=== PATIENT | female | born 1985 | race Caucasian/White ===

== ENCOUNTER 2018-03-23 21:30 | Inpatient (IN) ==
[2018-03-23] MEDS ORDERED: Morphine Inj 4 MG/ML Vial IV.PUSH PRN (22:40)
[2018-03-23] MEDS ORDERED: Citric Acid/Sodium Citrate Liq 30 ML UDC PO SCH (22:45)
[2018-03-23 23:19] LABS: Baso % (Auto) 0.4 % (0.0-2.0); Eos # (Auto) 0.2 th/mm3 (0.0-0.4); Eos % (Auto) 2.3 % (0.0-4.0); Hematocrit 37.9 % (35.0-46.0); Lymph # (Auto) 2.7 th/mm3 (1.0-4.8); Lymph % (Auto) 26.9 % (9.0-44.0); Mean Corpuscular HGB Conc 34.3 % (32.0-36.0); Mean Corpuscular Hemoglobin 32.9 pg (27.0-34.0); Mean Corpuscular Volume 95.9 fL (80.0-100.0); Mean Platelet Volume 9.1 fL (7.0-11.0); Mono # (Auto) 0.7 th/mm3 (0.0-0.9); Mono % (Auto) 7.3 % (0.0-8.0); Neut # (Auto) 6.3 th/mm3 (1.8-7.7); Neut % (Auto) 63.1 % (16.0-70.0); Platelet Count 246 th/mm3 (150-450); Red Blood Count 3.95 mil/mm3 (4.00-5.30); Red Cell Distribution Width 13.5 % (11.6-17.2); White Blood Count 9.9 th/mm3 (4.0-11.0)
[2018-03-23 23:28] LABS: Amphetamine Screen,Urine Neg (Neg); Barbiturate Screen,Urine Neg (Neg); Cannabinoid Screen,Urine Neg (Neg); Cocaine Screen,Urine Neg (Neg)
[2018-03-23 23:32] LABS: Opiate Screen,Urine Neg (Neg)
[2018-03-23] MEDS: LORazepam 1 MG Tablet PO PRN (23:54)
--- NOTE | 2018-03-24 02:43 | P.HPOB ---
History of Present Illness Service: labor Primary Care Physician: No Primary Care Physician Chief Complaint: 23 + week IUP with lethal anomolies History of Present Illness: 23 week IUP wtih lethal anomolies 33 yo mwf with EDC 07/17/18 at 23+ weeks. At 20 weeks routine anatomy scan revealed severe ascites and subsequent imaging with [facility]RI[facility]IAN[facility] has revealed a VDS , clubbed feet, cystic kidneys and hydronephrosis. Ascites has compressed chest cavity and perinatology has determined there is inadequate space for pulmonary development. Karyotype 46XY TORCH negative Coxsackie positive IgG. She is a school nurse. No viral syndrome or other illness remembered. Rh negative but titer also negative. Prior 2 pregnancies were term SVDs. She did have mild PPH after second child. Her baseline history is significant for anxiety, increased BMI. No HTN, GDM or PTL. PNC began in first trimester and has been consistent. Full H & P also dictated and pending. Weeks Gestation:: 23 Para: 2 : 3 - Inpatient Certification I certify that the inpatient services were ordered in accordance with Medicare regulations governing the order. This includes certification that hospital inpatient services are reasonable and necessary and in the case of services not specified as inpatient-only under 42 CFR 419.22(n), that they are appropriately provided as inpatient services in accordance to with the 2-midnight benchmark under 43 CFR 412.3(e) Estimated Total Length of Stay (Days): 2 Plans for Post Hospital Care: Home Review of Systems All other systems reviewed negative except as stated in HPI Psychiatric: Reports anxiety PMFSH - Social History I have reviewed the patient's Social History: Yes - Tobacco History Second Hand Smoke Exposure: No Tobacco Use In Past 30 Days: No - Travel History Recent Travel in the [place] Within the Last 8 Weeks: No Recent Travel Out of the Country Within the Last 8 Weeks: No - Immunization History Tetanus Immunization: Unsure Hx Influenza Vaccine This Season: No Medications and Allergies Active Medications: Active Medications Citric Acid/Sodium Citrate (Sodium Citrate/Citric Acid Liq) 30 ml PO PUNCH MOLDER ANNA Stop: 03/27/18 22:44 Diphenoxylate HCl/Atropine (Lomotil) 1 tab PO Q4H PRN PRN Reason: DIARRHEA Lactated Ringer's (Lr 1000 Ml Inj) 1,000 mls @ 125 mls/hr IV.CONT .Q8H ANNA Stop: 03/24/18 06:44 Last Admin: 03/23/18 22:15 Dose: 125 mls/hr Lorazepam (Ativan) 1 mg PO TID PRN PRN Reason: ANXIETY Last Admin: 03/23/18 23:54 Dose: 1 mg Lorazepam (Ativan Inj) 1 mg IV.PUSH Q8H PRN PRN Reason: ANXIETY Misoprostol (Cytotec) 50 mcg PO Q4HR [facility] Last Admin: 03/24/18 01:46 Dose: 50 mcg Morphine Sulfate (Morphine Inj) 5 mg IV.PUSH Q2H PRN PRN Reason: Pain Scale 5 - 10 Morphine Sulfate (Morphine Inj) 2 mg IV.PUSH Q2H PRN PRN Reason: Pain Scale 1 - 4 Ondansetron HCl (Zofran Inj) 4 mg IV.PUSH Q6H PRN PRN Reason: NAUSEA OR VOMITING Sodium Chloride (Ns Flush) 2 ml IV.FLUSH BID ANNA Sodium Chloride (Ns Flush) 2 ml IV.FLUSH UNSCH PRN PRN Reason: FLUSH AFTER USING IV ACCESS Allergies Allergy/AdvReac Type Severity Reaction Status Date / Time amoxicillin AdvReac Intermediate not Verified 03/24/18 00:49 working for pt. Home Medications Medication Instructions Recorded Confirmed Type Claritin 10 mg PO DAILY 03/24/18 03/24/18 History Colace 1 tab PO BID 03/24/18 03/24/18 History Vitamin 1 tab PO DAILY 03/24/18 03/24/18 History Wellbutrin SR 150 mg PO BID 03/24/18 03/24/18 History aspirin 81 mg PO DAILY 03/24/18 03/24/18 History metoprolol tartrate 50 mg PO BID 03/24/18 03/24/18 History Exam Vital signs: Vital Signs 03/23/18 21:56 03/24/18 00:00 03/24/18 00:01 Temperature 99.1 F Pulse Rate 85 70 Respiratory Rate 18 18 Blood Pressure 125/70 110/61 03/24/18 01:48 03/24/18 01:50 Temperature 98.2 F Pulse Rate 80 Respiratory Rate 16 Blood Pressure 103/42 L Intake & Output 03/23/18 03/23/18 03/24/18 06:59 18:59 06:59 Weight 138.799 kg Other: Weight On Admission 138.799 kg - Constitutional moderate distress, obese - Routine HEENT Exam Head: Present: normocephalic Eye: Present: PERRL ENT: Present: mucous membranes moist - Routine Respiratory Exam Present: CTA bilaterally - Routine Cardiovascular Exam Present: RRR - Routine Abdominal Exam Present: soft, normoactive bowel sounds - Routine Neurological Exam Present: alert, oriented X3 (cervix soft/long/finger tip) Results - Labs CBC & Chem 7: 03/23/18 22:15 Labs: Laboratory Results - last 24 hr 03/23/18 03/23/18 03/23/18 21:43 22:15 22:15 WBC 9.9 RBC 3.95 L Hgb 13.0 Hct 37.9 MCV 95.9 MCH 32.9 MCHC 34.3 RDW 13.5 Plt Count 246 MPV 9.1 Neut % (Auto) 63.1 Lymph % (Auto) 26.9 Major % (Auto) 7.3 Eos % (Auto) 2.3 Baso % (Auto) 0.4 Neut # (Auto) 6.3 Lymph # (Auto) 2.7 Major # (Auto) 0.7 Eos # (Auto) 0.2 Baso # (Auto) 0.0 WBC Differential . Differential Comment Auto diff final Urine Opiates Screen Neg Ur Barbiturates Screen Neg Ur Amphetamines Screen Neg U Benzodiazepines Scrn Neg Urine Cocaine Screen Neg U Cannabinoids Screen Neg Blood Type O Negative Antibody Screen ND Ab Screen Tube Method Negative Caprini VTE Risk Assessment Caprini VTE Risk Assessment: No/Low Risk (score <= 1) Caprini Risk Assessment Model: Point Value = 1 Point Value = 2 Point Value = 3 Point Value = 5 Age 41-60 Minor surgery BMI > 25 kg/m2 Swollen legs Varicose veins or History of unexplained or recurrent spontaneous Oral contraceptives or hormone replacement Sepsis (< 1 month) Serious lung disease, including pneumonia (< 1 month) Abnormal pulmonary function Acute myocardial infarction Congestive heart failure (< 1 month) History of inflammatory bowel disease Medical patient at bed rest Age 61-74 Arthroscopic surgery Major open surgery (> 45 min) Laparoscopic surgery (> 45 min) Malignancy Confined to bed (> 72 hours) Immobilizing plaster cast Central venous access Age >= 75 History of VTE Family history of VTE Factor V Leiden Prothrombin [id number] Lupus anticoagulant Anticardiolipin antibodies Elevated serum homocysteine Heparin-induced thrombocytopenia Other congenital or acquired thrombophilia Stroke (< 1 month) Elective arthroplasty Hip, pelvis, or leg fracture Acute spinal cord injury (< 1 month) Prophylaxis Regimen: Total Risk Factor Score Risk Level Prophylaxis Regimen 0-1 Low Early ambulation 2 Moderate Order ONE of the following: *Sequential Compression Device (SCD) *Heparin 5000 units SQ BID 3-4 Higher Order ONE of the following medications: *Heparin 5000 units SQ TID *Enoxaparin/Lovenox 40 mg SQ daily (WT < 150 kg, CrCl > 30 mL/min) *Enoxaparin/Lovenox 30 mg SQ daily (WT < 150 kg, CrCl > 10-29 mL/min) *Enoxaparin/Lovenox 30 mg SQ BID (WT < 150 kg, CrCl > 30 mL/min) AND/OR *Sequential Compression Device (SCD) 5 or more Highest Order ONE of the following medications: *Heparin 5000 units SQ TID (Preferred with Epidurals) *Enoxaparin/Lovenox 40 mg SQ daily (WT < 150 kg, CrCl > 30 mL/min) *Enoxaparin/Lovenox 30 mg SQ daily (WT < 150 kg, CrCl > 10-29 mL/min) *Enoxaparin/Lovenox 30 mg SQ BID (WT < 150 kg, CrCl > 30 mL/min) AND *Sequential Compression Device (SCD) Assessment and Plan - Diagnosis (1) 23 weeks gestation of Code(s): Z3A.23 - 23 weeks gestation of Status: Acute (2) ascites Code(s): P96.89 - Other specified conditions originating in the period ; R18.8 - Other ascites Status: Acute - Plan cytotec induction
[2018-03-24] MEDS ORDERED: LORazepam 1 MG Tablet PO ONE (02:45)
--- NOTE | 2018-03-24 07:35 | MH ---
cc: Susan Olivarez MD DATE OF ADMISSION: 03/23/2018 REASON FOR ADMISSION: A 23-week intrauterine with a nonviable condition, admission for Cytotec cervical ripening and induction. HISTORY OF PRESENT CONDITION: The patient is a very pleasant 33-year-old, white female, 3, para 2-0-0-2, with LMP 10/02/2017 and EDC 07/17/2017 by 9-week ultrasound, who was having routine surveillance for this when at 20 weeks, it was discovered that the baby had severe ascites, clubbed feet and possible renal cysts. Several evaluations in the interval by OB diagnostics and perinatology through [facility] have resulted in the prognosis of hypoplastic lungs due to the severity of the ascites, failure of nonfunctioning kidneys due to the rapidly progressing polycystic disease and the probability of some type of syndrome despite the normal karyotype to date. Micro analysis is pending at this time. Other than showing IgG antibodies to coxsackievirus, the patient had negative TORCH titers. She is Rh positive and had no suggestion of any type of erythroblastosis. The baby's head has shown no signs of hydrocephalus or scalp edema. PAST MEDICAL HISTORY: The patient herself is significant for an elevated body mass index at 307, a history of hemorrhage with her second child. She has had a tonsillectomy and some sinus irrigation, but no other surgeries. She has had 2 term infants. 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 She does not smoke, drink or use illicit drugs. FAMILY HISTORY: Noncontributory . Her blood type is O negative. She has received RhoGAM appropriately in the past. She is immune to [place] measles. Her Pap smear is normal. Her cultures are negative. PHYSICAL EXAMINATION: GENERAL: She is a well-developed, well-nourished white female who is currently at 306 pounds. Her blood pressure is 150/90. Urine was negative. She has some mild edema. NECK: She has no thyroid enlargement. LUNGS: Clear. HEART: Regular. ABDOMEN: Consistent with ____. PELVIC: Cervix is long, closed, posterior. EXTREMITIES: Show varicosities and some mild edema. IMPRESSION: Nonviable 23-week intrauterine , scheduled for induction of labor and no resuscitative efforts at delivery. Risks, benefits, expectations of this course of action have been discussed in great detail over the course of several weeks and this decision has been made by the patient with her family, the perinatologist and those who advised her ____. MD JUDY Palacio/estrella/sarah , 03:30 PM , 03:42 PM
[2018-03-24] MEDS ORDERED: Acetaminophen 325 MG Tablet PO PRN (08:00)
--- NOTE | 2018-03-24 08:08 | P.OBLABOR ---
Subjective Interval history: quiet night remains very sad but better this am mild cramping only no leaking or bleeding Objective Vital Signs: Vital Signs - 8 hr 03/24/18 01:48 03/24/18 01:50 03/24/18 06:04 Temperature 98.2 F 99.1 F Pulse Rate 80 Respiratory Rate 16 18 Blood Pressure 103/42 L 03/24/18 06:06 03/24/18 07:30 Temperature Pulse Rate 79 78 Respiratory Rate 18 Blood Pressure 81/30 L 123/65 Objective: Pelvic Exam: cervix soft and closed not monitoring Assessment and Plan - Diagnosis (1) 23 weeks gestation of Code(s): Z3A.23 - 23 weeks gestation of Status: Acute (2) ascites Code(s): P96.89 - Other specified conditions originating in the period ; R18.8 - Other ascites Status: Acute - Plan cytotec induction will increase now to 400 mg every four hours epidural as needed desires cremation
[2018-03-24] MEDS: miSOPROStol 200 MCG Tablet PO SCH ×4 (09:15→21:05)
[2018-03-24] MEDS ORDERED: Metoprolol Tartrate 100 MG Tablet PO SCH (09:15)
[2018-03-24] MEDS: buPROPion 150 MG 12 HR Tablet PO SCH ×2 (10:16→21:05)
[2018-03-24] MEDS: Diphenoxylate/Atropine 2.5/0.025 MG Tablet PO PRN ×3 (11:52→20:10)
[2018-03-24] MEDS: Metoprolol Tartrate 50 MG Tablet PO SCH ×2 (13:03→21:06)
[2018-03-24] MEDS: LORazepam 1 MG Tablet PO PRN (14:19)
--- NOTE | 2018-03-24 16:00 | P.OBLABOR ---
Subjective Interval history: having some cramps handling situation well over all some diarrhea Objective Vital Signs: Vital Signs - 8 hr 03/24/18 11:43 03/24/18 11:44 Temperature 98.9 F Pulse Rate 72 Respiratory Rate 20 Blood Pressure 120/67 Objective: Pelvic Exam: 1cm and long but softening rigorous stripping of membranes no part presenting Weeks Gestation: 23 Assessment and Plan - Diagnosis (1) 23 weeks gestation of Code(s): Z3A.23 - 23 weeks gestation of Status: Acute (2) ascites Code(s): P96.89 - Other specified conditions originating in the period ; R18.8 - Other ascites Status: Acute - Plan cytotec induction will increase now to 400 mg every four hours epidural as needed desires cremation
[2018-03-24] MEDS: Morphine Sulfate Inj 8 MG/ML Vial IV.PUSH PRN ×2 (16:16→18:09)
[2018-03-24] MEDS ORDERED: fentaNYL Citrate Inj 100 MCG/2 ML Ampul IV.PUSH PRN ×2 (18:38)
[2018-03-24] MEDS ORDERED: Sod Chloride 0.9% Inj 1,000 ML IV.CONT PRN (18:38)
[2018-03-24] MEDS ORDERED: Sodium Chlor 0.9% Inj 500 ML IV.SIG PRN (18:38)
[2018-03-24] MEDS ORDERED: Citric Acid/Sodium Citrate Liq 30 ML UDC PO SCH (18:45)
[2018-03-24] MEDS ORDERED: Oxytocin 30 Units/500ml Premix 30 UNITS/500 ML BAG IV.SIG ONE (19:00)
[2018-03-25] MEDS: LORazepam 1 MG Tablet PO PRN ×2 (04:50→13:58)
[2018-03-25] MEDS: Morphine Sulfate Inj 8 MG/ML Vial IV.PUSH PRN ×3 (07:47→12:42)
[2018-03-25 07:51] VITALS: RESP 18
[2018-03-25] MEDS: buPROPion 150 MG 12 HR Tablet PO SCH ×2 (09:52→20:59)
--- NOTE | 2018-03-25 09:56 | P.OBLABOR ---
Subjective Interval history: Jaquelin had a rough night. Very tearful. Mild cramping and diarrhea Receiving oral misoprostel -- up to 600 mcg per dose on a 4 hour basis with minimal change. No leaking or bleeding Objective Vital Signs: Vital Signs - 8 hr 03/25/18 02:00 03/25/18 04:55 03/25/18 07:50 Temperature 98.5 F Pulse Rate 59 L 81 Respiratory Rate 20 18 Blood Pressure 124/63 03/25/18 07:52 Temperature Pulse Rate 82 Respiratory Rate Blood Pressure 117/60 Objective: Pelvic Exam: 1-2/long/soft aggressively stripped membranes feet at lower sac Patient Started Active Labor: No Medical Induction of Labor: Yes Artificial Rupture of Membrane: No Assessment and Plan - Diagnosis (1) 23 weeks gestation of Code(s): Z3A.23 - 23 weeks gestation of Status: Acute (2) ascites Code(s): P96.89 - Other specified conditions originating in the period ; R18.8 - Other ascites Status: Acute - Plan cytotec induction will increase now to 400 mg every four hours epidural as needed desires cremation 03/25/18 0930 Long discussion with family: they desire to proceed with induction and delivery of this infant considered to be nonviable per discussions with perinatology (50% of demise and inevitable demise due to pulmonary hypoplasia and polycystic kidneys) Anticipate prolonged prostaglandin induction. Doses not given since 9pm last night due to computer entry issues and busy labor floor. Ready for next dose now. Reviewed up to date and discussed with colleagues regarding pitocin vs cervidil. Will add gaston for manual dilation and continue 600 mcg for a full 24 hours before switching gears. No evidence of infection. Will hep lock IV. detailed discussion with NICU -- will not be present at delivery.
[2018-03-25] MEDS: Metoprolol Tartrate 50 MG Tablet PO SCH ×2 (10:54→23:25)
--- NOTE | 2018-03-25 10:56 | P.OBLABOR ---
Subjective Interval history: discussed and decided to use Cook catheter for cervical dilation. Cervix cleaned and catheter placed with gush of bright red blood and some cramping. Bleeding quickly minimized. Will continue with 600 mcg oral cytotec and minimize cervical checks until balloon falls out. Desire to avoid hysterotomy. appraised of anticipated events. Objective Vital Signs: Vital Signs - 8 hr 03/25/18 04:55 03/25/18 07:50 03/25/18 07:52 Temperature 98.5 F Pulse Rate 81 82 Respiratory Rate 20 18 Blood Pressure 124/63 117/60 Objective: Pelvic Exam: Cervix: [-] Dilatation: [-] Effacement: [-] Station: [-] Presentation: [-] Membranes: [intact or ruptured] Uterine Contractions: [-] FHT's: Category: [-] Baseline: [-] Reactive: [-] Variability: [-] Decels: [-] Assessment and Plan - Diagnosis (1) 23 weeks gestation of Code(s): Z3A.23 - 23 weeks gestation of Status: Acute (2) ascites Code(s): P96.89 - Other specified conditions originating in the period ; R18.8 - Other ascites Status: Acute - Plan cytotec induction will increase now to 400 mg every four hours epidural as needed desires cremation 03/25/18 0930 Long discussion with family: they desire to proceed with induction and delivery of this infant considered to be nonviable per discussions with perinatology (50% of demise and inevitable demise due to pulmonary hypoplasia and polycystic kidneys) Anticipate prolonged prostaglandin induction. Doses not given since 9pm last night due to computer entry issues and busy labor floor. Ready for next dose now. Reviewed up to date and discussed with colleagues regarding pitocin vs cervidil. Will add gaston for manual dilation and continue 600 mcg for a full 24 hours before switching gears. No evidence of infection. Will hep lock IV. detailed discussion with NICU -- will not be present at delivery.
[2018-03-25] MEDS: miSOPROStol 200 MCG Tablet PO SCH ×3 (12:00→23:24)
[2018-03-25] MEDS ORDERED: ceFAZolin 1 GM Premix Inj 1 GM/50 ML FROZ.PIGGY IV.SIG ONE ×3 (12:38→20:00)
[2018-03-25] MEDS ORDERED: ceFAZolin 1 GM Premix Inj 1 GM/50 ML FROZ.PIGGY IV.SIG SCH (13:00)
[2018-03-25] MEDS ORDERED: fentaNYL 2MCG-Bupiv 0.125% Epi 150 ML EPIDURAL ONE (13:10)
[2018-03-25] MEDS ORDERED: Lidocaine 1%/Epinephrine 1:200,000 PF Inj 30 ML Vial ONE (13:21)
[2018-03-25] MEDS ORDERED: fentaNYL Citrate Inj 100 MCG/2 ML Ampul EPIDURAL ONE (14:10)
[2018-03-25] MEDS: fentaNYL 2MCG-Bupiv 0.125% Epi 150 ML EPIDURAL PRN ×2 (14:55→23:23)
[2018-03-25] MEDS ORDERED: Oxytocin 30 Units/500ml Premix 30 UNITS/500 ML BAG IV.SIG PRN (20:12)
--- NOTE | 2018-03-25 20:16 | P.OBLABOR ---
Subjective Interval history: comfortable post epidural with family in the room after catheter fell out she was 4-5 with intact bag and footling breech now 9/80/high with bag intact and feet palpated. Movement still present Objective Vital Signs: Vital Signs - 8 hr 03/25/18 13:31 03/25/18 13:38 03/25/18 13:39 Temperature 99.3 F Pulse Rate 91 H 91 H Respiratory Rate 18 Blood Pressure 149/74 H 137/72 03/25/18 13:51 03/25/18 13:55 03/25/18 16:36 Temperature 99.0 F Pulse Rate 95 H 83 122 H Respiratory Rate 18 Blood Pressure 120/66 87/65 L 03/25/18 16:40 03/25/18 17:58 03/25/18 18:31 Temperature 100.2 F H Pulse Rate 76 84 Respiratory Rate 18 18 Blood Pressure 111/63 146/63 H 03/25/18 19:00 Temperature Pulse Rate 88 Respiratory Rate Blood Pressure 134/55 L Objective: Pelvic Exam: Cervix: [-] Dilatation: [-] Effacement: [-] Station: [-] Presentation: [-] Membranes: [intact or ruptured] Uterine Contractions: [-] FHT's: Category: [-] Baseline: [-] Reactive: [-] Variability: [-] Decels: [-] Assessment and Plan - Diagnosis (1) 23 weeks gestation of Code(s): Z3A.23 - 23 weeks gestation of Status: Acute (2) ascites Code(s): P96.89 - Other specified conditions originating in the period ; R18.8 - Other ascites Status: Acute - Plan cytotec induction will increase now to 400 mg every four hours epidural as needed desires cremation 03/25/18 0930 Long discussion with family: they desire to proceed with induction and delivery of this considered to be nonviable per discussions with perinatology (50% of demise and inevitable demise due to pulmonary hypoplasia and polycystic kidneys) Anticipate prolonged prostaglandin induction. Doses not given since 9pm last night due to computer entry issues and busy labor floor. Ready for next dose now. Reviewed up to date and discussed with colleagues regarding pitocin vs cervidil. Will add gaston for manual dilation and continue 600 mcg for a full 24 hours before switching gears. No evidence of infection. Will hep lock IV. detailed discussion with NICU -- will not be present at delivery. 03/25/181999 will start pitocin at 06/17/19 continue peanut ball antibiotics anticipate breech delivery--ideally in amniotic sac hoping ascites stretches out cervix and prevents entrapped head.
[2018-03-26] MEDS ORDERED: Benzocaine 20% Top Spray 60 ML Can TOPICAL PRN (02:28)
[2018-03-26] MEDS ORDERED: Oxytocin 30 Units/500ml Premix 30 UNITS/500 ML BAG IV.CONT PRN (02:28)
[2018-03-26] MEDS ORDERED: Witch Hazel 50%/Glyderin 12.5% 40 Pad Jar RECTAL PRN (02:28)
[2018-03-26] MEDS ORDERED: Naloxone Inj 0.4 MG/ML Vial IV.PUSH PRN (02:28)
[2018-03-26] MEDS ORDERED: Zolpidem Tartrate 5 MG Tablet PO PRN (02:28)
[2018-03-26] MEDS ORDERED: Acetaminophen 325 MG Tablet PO PRN (02:28)
[2018-03-26] MEDS ORDERED: Bisacodyl 10 MG Supp RECTAL PRN (02:28)
--- NOTE | 2018-03-26 02:32 | P.OBDELI ---
Weeks Gestation: 23 Patient Started Active Labor: Yes Medical Induction of Labor: Yes Artificial Rupture of Membrane: No Anesthesia: Epidural Episiotomy: none Vaginal Delivery: Normal Presentation: Occiput anterior Nuchal Cord: x2 Delayed Cord Clamping (45 sec): No (non viable) Placenta: Spontaneous delivery, Intact, 3 vessel cord Laceration: None : Male Male A score (1 min): 3 score (5 min): 3 score (10 min): 0 (profound ascites; hypoplastic chest; clubbed feet)
[2018-03-26 04:09] VITALS: BP 114/50; PULSE 113
[2018-03-26 04:52] VITALS: TEMP 98.9
[2018-03-26] MEDS ORDERED: Senna/Docusate Sodium 8.6/50 MG Tablet PO SCH (09:00)
[2018-03-26] MEDS ORDERED: Measles/Mumps/Rubella Vaccine Inj 0.5 ML Vial SQ ONE (16:00)
[2018-03-26] MEDS ORDERED: Diphtheria/Tetanus/Pertussis Vaccine Inj 0.5 ML Syringe IM ONE (16:00)
== END 2018-03-26 05:28 | disposition home or self-care (01) ==
LOC: H2E 21:30
PROVIDERS: ADMIT Obstetrics & Gynecology; ATTEND Obstetrics & Gynecology